=== PATIENT | female | born 1985 | race African-American/Black ===

== ENCOUNTER 2018-02-22 18:08 | Emergency (ER) | payer OTHER ==
[~2018-02-22] VITALS: Ht 165.1 cm; Wt 98.9 kg
[2018-02-22 18:20] VITALS: BP 152/82
--- NOTE | 2018-02-22 18:48 | NUR ---
BIB FAMILY WITH C/O CHRONIC LT LOWER BACK PAIN RADIATING TO THE LT LOWER EXTREMITY WITH DIZZINESS AND NUMBNESS ON LT FEET WORSE SINCE YESTERDAY; PER PT WAS SEEN AT [facility] YESTERDAY AND GIVEN IBUPROFEN WITH NO RELIEF; DENIES TRAUMA OR INJURY HX; [facility]
--- NOTE | 2018-02-22 19:14 | NUR ---
ASSUMED CARE OF PT AT THIS TIME, PT LAYING IN BED, PENDING MD BROWN.
--- NOTE | 2018-02-22 19:14 | NUR ---
Pt report given to SIM SANCHEZ. Transfer of care at this time.
--- NOTE | 2018-02-22 19:40 | NUR ---
Dr. De La Garza evaluating patient at bedside.
[2018-02-22] MEDS ORDERED: MORPHINE SULFATE 4 MG/ML SYR IM ONE ×2 (20:00→22:00)
--- NOTE | 2018-02-22 20:45 | NUR ---
PT LAYING IN BED STATES SHE HAS PAIN MIKE ARREGUIN MD MADE AWARE.
[2018-02-22 22:25] VITALS: BP 122/63
--- NOTE | 2018-02-22 22:25 | NUR ---
Patient discharged with v/s stable. Written and verbal after care instructions given and explained. Patient alert, oriented and verbalized understanding of instructions. Ambulatory with steady gait. All questions addressed prior to discharge. ID band removed. Patient advised to follow up with PMD. Rx of Medrol dose pack and Tramadol given. Patient educated on indication of medication including possible reaction and side effects. Opportunity to ask questions provided and answered.
== END 2018-02-22 22:25 | disposition home or self-care (01) ==
LOC: MED 18:08
DX: M54.42 Lumbago with sciatica, left side (principal); Z88.0 Allergy status to penicillin
CPT/HCPCS: 96372; 99283; J2270

== ENCOUNTER 2018-06-24 12:34 | Emergency (ER) | payer OTHER ==
[~2018-06-24] VITALS: Ht 165.1 cm; Wt 98.9 kg
[2018-06-24 12:59] VITALS: BP 134/84
--- NOTE | 2018-06-24 13:10 | NUR ---
PT AMBULATED TO BED 8
--- NOTE | 2018-06-24 13:44 | NUR ---
PATIENT PRESENTS TO ED WITH C/O COUGH/CONGESTION X 3 DAYS AND RASH UNDER BREAST. PT DENIES PAIN AT THIS TIME. PT SKIN IS PINK/WARM/DRY; AAOX4 WITH EVEN AND STEADY GAIT; LUNGS CLEAR BL; PATIENT POSITIONED FOR COMFORT; HOB ELEVATED; BEDRAILS UP X2; BED DOWN. ER MD MADE AWARE OF PT STATUS.
--- NOTE | 2018-06-24 14:55 | NUR ---
Patient discharged with v/s stable. Written and verbal after care instructions given and explained. Patient alert, oriented and verbalized understanding of instructions. Ambulatory with steady gait. All questions addressed prior to discharge. ID band removed. Patient advised to follow up with PMD. Rx of NYSTATIN AND SUDAFED given. Patient educated on indication of medication including possible reaction and side effects. Opportunity to ask questions provided and answered.
[2018-06-24 14:56] VITALS: BP 125/70
== END 2018-06-24 14:55 | disposition home or self-care (01) ==
LOC: MED 12:34
DX: B37.9 Candidiasis, unspecified (principal); J06.9 Acute upper respiratory infection, unspecified; Z88.0 Allergy status to penicillin
CPT/HCPCS: 99283